=== PATIENT | male | born 1965 | race Caucasian/White ===

== ENCOUNTER → 2016-05-23 | Outpatient (CLI) | payer OTHER ==
--- NOTE | ~2016-05-23 | MR164 ---
[facility] A Service of [facility] & [facility] RADIOLOGY TEXT RESULTS PATIENT: SURY MAST LOCATION: [facility] : 65 UNIT #: [id number] AGE: [address]: LOVE OSBORNE APRN SEX: M ORDER DR: [id number] [facility] [address] [place], [place] [address] [id number] MR#: [id number] Acc #: [id number] NAME: SURY MAST : 1965 SEX: M STUDY DATE/TIME: 05/23/2016 17:22 UNIT: [facility] ROOM: STUDY DESCRIPTION: MR Shoulder Wo Contrast Lt Attending Physician: Love Osborne Aprn Referring Physician: Love Osborne Aprn Ordering Physician: Love Osborne Aprn Primary Care Physician: Love Osborne Aprn MRI CENTER REPORT This report is preliminary unless electronic signature is present. EXAM Left shoulder MRI without contrast 05/23/2016 HISTORY 51-year-old male with left shoulder pain for 1 year. No prior left shoulder surgery COMPARISON None. TECHNIQUE Routine unenhanced multiplanar, multisequence high field MR imaging of the left shoulder was performed. FINDINGS There is mild supraspinatus and infraspinatus tendinopathy. No evidence of tear. Teres minor and subscapularis tendons are intact. The long biceps tendon is intact and well positioned in the bicipital groove. There is a multilobulated paralabral cyst extending along the inferior aspect of the glenoid. This measures approximately 2.6 cm in maximum AP dimension. This appears to be associated with an inferior labral tear extending from the anterior-inferior quadrant to the posterior-inferior quadrant. Remainder of the glenoid labrum appears intact. Glenohumeral articular cartilage is intact. No glenohumeral effusion. Mild degenerative change of the acromioclavicular joint. No subacromial spur. No inflammation of the subacromial/subdeltoid bursa. Bone marrow signal is within expected limits. Visualized musculature is unremarkable. IMPRESSION [facility] A Service of [facility] & [facility] RADIOLOGY TEXT RESULTS PATIENT: SURY MAST LOCATION: [facility] : 65 UNIT #: [id number] AGE: [address]: LOVE OSBORNE APRN SEX: M ORDER DR: 1. Mild supraspinatus and infraspinatus tendinopathy. No evidence of a rotator cuff tear. 2. Multilobulated paralabral cyst along the inferior aspect of the glenoid which measures approximately 2.6 cm in maximum AP dimension. This appears to be associated with a tear involving the inferior glenoid labrum extending from anterior inferior quadrant to the posterior-inferior quadrant. If indicated, this can be further characterized with MRI arthrogram of the left shoulder. 3. Mild arthrosis of the acromioclavicular joint. Dictated by... Al Miranda M.D. THIS IS AN ELECTRONICALLY VERIFIED REPORT Al Miranda M.D. at 05/24/2016 4:59 PM BHARAT/onelia TD: 05/24/2016 15:58 JOB #: [id number] MRI CENTER REPORT Page 1 of 1 COPY
== END | disposition home or self-care (01) ==
LOC: CMRI 16:32
DX: S49.92XS Unspecified injury of left shoulder and upper arm, sequela (principal); S43.432S Superior glenoid labrum lesion of left shoulder, sequela; M19.012 Primary osteoarthritis, left shoulder; M75.82 Other shoulder lesions, left shoulder
CPT/HCPCS: 73221